=== PATIENT | male | born 1995 | race Two or more races ===

== ENCOUNTER 2023-08-24 16:04 | Inpatient (IN) | payer OTHER ==
[~2023-08-24] VITALS: Ht 172.7 cm; Wt 84.8 kg
[2023-08-24 16:59] LABS: BASOPHILS % (AUTO) 0.1 % (0.0-2.0); EOSINOPHILS % (AUTO) 0.1 % (0.0-6.0); HEMATOCRIT 51 % (39-51); HEMOGLOBIN 17.4 g/dL (13.5-17.5); LYMPHOCYTES # (AUTO) 1.4 K/uL (0.8-4.8); LYMPHOCYTES % (AUTO) 5.3 % (20.0-44.0); MEAN CORPUSCULAR HEMOGLOBIN 33 PG (26.0-33.0); MEAN CORPUSCULAR HGB CONC 34 g/dl (31.0-36.0); MEAN CORPUSCULAR VOLUME 96 fL (80-96); MONOCYTES # (AUTO) 0.8 K/uL (0.1-1.30); MONOCYTES % (AUTO) 3.1 % (2.0-12.0); NEUTROPHILS # (AUTO) 24.2 K/uL (1.8-8.9); NEUTROPHILS % (AUTO) 91.4 % (43.0-81.0); PLATELET COUNT (AUTO) 308 K/uL (150-450); RED BLOOD CELL COUNT(AUTO) 5.29 MIL/uL (4.5-6.0); RED CELL DISTRIBUTION WIDTH 13.2 % (11.5-15.0); WHITE BLOOD COUNT (AUTO) 26.4 K/uL (4.3-11.0)
[2023-08-24 17:05] LABS: APPEARANCE,URINE CLEAR (CLEAR); BILIRUBIN,URINE 1+ (NEGATIVE); BLOOD, URINE NEGATIVE Ery/uL (NEGATIVE); COLOR,URINE YELLOW (YELLOW); KETONES,URINE NEGATIVE (NEGATIVE); LEUKOCYTE ESTERASE ,URINE NEGATIVE (NEGATIVE); NITRITE, URINE NEGATIVE (NEGATIVE); PH,URINE 5.5 (5.0-8.0); PROTEIN,URINE 1+ mg/dl (NEGATIVE); UGLUCOSE 3+ mg/dL (NEGATIVE); UROBILINOGEN,URINE 0.2 EU/dL (0.2)
[2023-08-24 17:13] LABS: INR 1.18 (0.91-1.10); PARTIAL THROMBOPLASTIN TIME 31.6 SEC (24.3-34.3); PROTHROMBIN TIME 12.4 SECS (9.2-11.1)
[2023-08-24 17:25] LABS: ADD URINE CULTURE NO; BACTERIA,URINE 1+ /HPF (None Seen); HYALINE CASTS, URINE Few /LPF (None Seen); MUCUS,URINE Few /LPF (None Seen); RBC,URINE NONE SEEN /HPF (0-2); SQUAMOUS EPITHELIAL CELL,UR None Seen /HPF (None Seen); WBC,URINE NONE SEEN /HPF (0-3)
[2023-08-24] MEDS ORDERED: CLINDAMYCIN 900 MG/6 ML VIAL ONE (17:35)
[2023-08-24] MEDS ORDERED: CEFTRIAXONE 1GM BAG (ER ONLY) 50 ML IV ONE (17:35)
[2023-08-24] MEDS: CEFTRIAXONE 1GM BAG (ER ONLY) 50 ML IV ONE (17:36)
[2023-08-24] MEDS: CLINDAMYCIN 600 MG in IV D5W 100 ML IV ONE (17:36)
[2023-08-24 17:54] LABS: CALCIUM, SERUM 8.6 mg/dL (8.5-10.1); CARBON DIOXIDE 31 mmol/L (21-32); CHLORIDE 99 mmol/L (98-107); CREATININE 1.5 mg/dL (0.6-1.3); GLUCOSE 178 mg/dL (74-106); POTASSIUM 4.2 mmol/L (3.5-5.1); SODIUM SERUM 136 mmol/L (136-145); UREA NITROGEN, BLOOD 12 mg/dL (7-18)
[2023-08-24 18:01] LABS: ALANINE AMINOTRANSFERASE 43 U/L (12-78); ALBUMIN 3.5 g/dL (3.4-5.0); ALKALINE PHOSPHATASE 82 U/L (46-116); ASPARTATE AMINOTRANSFERASE 39 U/L (15-37); BILIRUBIN,DIRECT 0.2 mg/dL (0.0-0.2); BILIRUBIN,TOTAL 1.1 mg/dL (0.2-1.0); TOTAL PROTEIN, SERUM 7.2 g/dL (6.4-8.2)
[2023-08-24 18:07] LABS: BAND % (MANUAL) 3 % (0.0-5.0); LYMPHOCYTES % (MANUAL) 8 % (16-48); MONOCYTES % (MANUAL) 1 % (0-11.0); NEUTROPHILS % (MANUAL) 88 (42-76); PLATELET ESTIMATE ADEQUATE
[2023-08-24] MEDS: IV NS 0.9% 1,000 ML BAG IV ONE ×2 (18:37→18:38)
[2023-08-24] MEDS ORDERED: MAG HYDROX/AL HYDROX/SIMETH 30 ML UDC PO PRN (20:30)
[2023-08-24] MEDS ORDERED: Z GUARD REMEDY 4 OZ OINT TP PRN (20:30)
[2023-08-24] MEDS ORDERED: MAGNESIUM HYDROXIDE 30 ML UDC PO PRN (20:30)
[2023-08-24] MEDS ORDERED: ACETAMINOPHEN 325 MG TABLET PO PRN (20:30)
[2023-08-24] MEDS ORDERED: ONDANSETRON HCL/PF 4 MG/2 ML VIAL IVP PRN (20:30)
[2023-08-24] MEDS ORDERED: ZOLPIDEM TARTRATE 5 MG TABLET PO PRN (20:30)
[2023-08-24 20:37] LABS: ABG BASE EXCESS 1.5 mmol/L; ABG OXYGEN SATURATION 97.2 % (92.0-98.5); ABG PH 7.338 (7.350-7.450); ABG PO2 98.1 mmHg (75.0-100.0); ABG TOTAL HEMOGLOBIN 18.4 G/dL (13.5-18.0); COHb 0.3 % (0.5-1.5); MetHb 0.5 % (0.0-1.5); O2Hb 96.4 % (94.0-97.0); SITE, ABG Right Radial; VENT MODE, BG 15LPM NRB
[2023-08-24] MEDS: IV D5/0.45 NACL 1,000 ML IV PRN (21:24)
[2023-08-24 21:44] VITALS: BP 127/62; TEMP 97.8; O2SAT 100
[2023-08-24 22:00] VITALS: BP 125/69; O2SAT 97
[2023-08-24 23:00] VITALS: BP 140/71; O2SAT 90
[2023-08-25] VITALS (19 sets, daily range): BP systolic 116–137; BP diastolic 61–77; TEMP 97.5–98.2; O2SAT 90–98
[2023-08-25 05:11] LABS: ABG BASE EXCESS 0.4 mmol/L; ABG OXYGEN SATURATION 91.8 % (92.0-98.5); ABG PCO2 46.3 mmHg (35.0-45.0); ABG PH 7.371 (7.350-7.450); ABG PO2 61.8 mmHg (75.0-100.0); ABG TOTAL HEMOGLOBIN 16.8 G/dL (13.5-18.0); AaDO2 199.1 mmHg; COHb 0.7 % (0.5-1.5); MetHb 0.3 % (0.0-1.5); O2Hb 90.9 % (94.0-97.0); SITE, ABG Left Radial; VENT MODE, BG N/C 44
[2023-08-25] MEDS ORDERED: CLINDAMYCIN 900 MG/6 ML VIAL ONE (05:14)
[2023-08-25 05:19] LABS: BASOPHILS # (AUTO) 0.1 K/uL (0.0-0.2); BASOPHILS % (AUTO) 0.5 % (0.0-2.0); EOSINOPHILS # (AUTO) 0.2 K/uL (0.0-0.7); EOSINOPHILS % (AUTO) 1.4 % (0.0-6.0); HEMATOCRIT 46 % (39-51); HEMOGLOBIN 15.7 g/dL (13.5-17.5); LYMPHOCYTES # (AUTO) 2.9 K/uL (0.8-4.8); LYMPHOCYTES % (AUTO) 18.2 % (20.0-44.0); MEAN CORPUSCULAR HEMOGLOBIN 33 PG (26.0-33.0); MEAN CORPUSCULAR HGB CONC 34 g/dl (31.0-36.0); MEAN CORPUSCULAR VOLUME 96 fL (80-96); MONOCYTES # (AUTO) 1.2 K/uL (0.1-1.30); MONOCYTES % (AUTO) 7.3 % (2.0-12.0); NEUTROPHILS # (AUTO) 11.5 K/uL (1.8-8.9); NEUTROPHILS % (AUTO) 72.6 % (43.0-81.0); PLATELET COUNT (AUTO) 243 K/uL (150-450); RED BLOOD CELL COUNT(AUTO) 4.76 MIL/uL (4.5-6.0); RED CELL DISTRIBUTION WIDTH 12.6 % (11.5-15.0); WHITE BLOOD COUNT (AUTO) 15.9 K/uL (4.3-11.0)
[2023-08-25] MEDS: CLINDAMYCIN IV RTU IN D5W 900 MG/50 ML PIGGYBACK IV SCH (05:21)
[2023-08-25 05:37] LABS: ALBUMIN 2.7 g/dL (3.4-5.0); BILIRUBIN,DIRECT 0.1 mg/dL (0.0-0.2); BILIRUBIN,TOTAL 0.9 mg/dL (0.2-1.0); CREATININE 1.2 mg/dL (0.6-1.3); MAGNESIUM 1.8 mg/dL (1.8-2.4); PHOSPHORUS 3.2 mg/dL (2.5-4.9); POTASSIUM 4.6 mmol/L (3.5-5.1)
[2023-08-25 06:17] LABS: BAND % (MANUAL) 1 % (0.0-5.0); EOSINOPHILS % (MANUAL) 1 % (0-4); LYMPHOCYTES % (MANUAL) 20 % (16-48); MONOCYTES % (MANUAL) 5 % (0-11.0); NEUTROPHILS % (MANUAL) 72 (42-76); PLATELET ESTIMATE ADEQUATE; REACTIVE LYMPHOCYTES 1 % (0-0)
[2023-08-25] MEDS: PANTOPRAZOLE 40 MG VIAL IV SCH (08:53)
[2023-08-25] MEDS: CEFEPIME 1 GM in IV D5W 50 ML IV SCH (12:36)
[2023-08-25] MEDS: ENOXAPARIN SODIUM 40 MG/0.4 ML DISP.SYRIN SQ SCH (12:39)
[2023-08-25] MEDS ORDERED: CLINDAMYCIN 900 MG in IV D5W 50 ML IV SCH (13:00)
[2023-08-26] VITALS (9 sets, daily range): BP systolic 122–138; BP diastolic 66–73; TEMP 97.7–98.6; O2SAT 96–100
[2023-08-26] MEDS: PANTOPRAZOLE 40 MG TABLET.DR PO SCH (09:24)
[2023-08-26] MEDS: CEFEPIME 2 GM in IV D5W 100 ML IV SCH (19:54)
[2023-08-27 04:00] VITALS: BP 133/67; TEMP 98; O2SAT 100
[2023-08-27 08:00] VITALS: BP 147/87; TEMP 97.9; O2SAT 99
[2023-08-27 12:00] VITALS: BP 128/78; TEMP 97.9; O2SAT 99
== END 2023-08-27 13:39 | disposition home or self-care (01) | DRG 812 ==
LOC: ER 16:11 → ICU 19:58 → TELE-TD 08-25 11:41 → MEDSG1 08-26 09:37
PROVIDERS: ADMIT Student in an Organized Health Care Education/Training Program
DX: T40.411A Poisoning by fentanyl or fentanyl analogs, accidental (unintentional), initial encounter (principal); N17.0 Acute kidney failure with tubular necrosis; J69.0 Pneumonitis due to inhalation of food and vomit; A41.9 Sepsis, unspecified organism; J96.01 Acute respiratory failure with hypoxia; J96.02 Acute respiratory failure with hypercapnia; I21.A1 Myocardial infarction type 2; K92.0 Hematemesis; E87.20 Acidosis, unspecified; F19.10 Other psychoactive substance abuse, uncomplicated; Y92.099 Unspecified place in other non-institutional residence as the place of occurrence of the external cause; R74.01 Elevation of levels of liver transaminase levels; Z98.890 Other specified postprocedural states
CPT/HCPCS: 36415; 36600; 71045-TC; 80048-TC; 80076-TC; 81001; 82803-TC; 83605-TC; 83735-TC; 84100-TC; 84484-TC; 85025-TC; 85730-TC; 87040-TC; 93307-TC; 94760-TC; 94799-TC; A4223; C9113; G0378; J0692; J0696; J1650; J3490; J7030; J7042; J7050; J7060